=== PATIENT | male | born 1965 | race African-American/Black ===

== ENCOUNTER 2019-11-30 16:03 | Emergency (ER) | payer OTHER ==
--- NOTE | 2019-11-30 16:26 | PDOC ---
Rapid Medical Evaluation Time Seen by Provider: 11/30/19 16:24 Medical Evaluation: Allergies Allergy/AdvReac Type Severity Reaction Status Date / Time No Known Allergies Allergy Verified 09/30/17 14:14 11/30/19 16:25 CC: 2 weeks with productive cough PE: Lungs CTAB Orders: CXR Patient will proceed to the ED for further evaluation. Discharge Disposition - Diagnosis Cough - Referrals - Patient Instructions - Post Discharge Activity
[2019-11-30 16:29] VITALS: BP 126/63; PULSE 91; TEMP 98.2; BMI 27.7
--- NOTE | 2019-11-30 17:28 | PDOC ---
History of Present Illness - General Chief Complaint: Cold Symptoms Stated Complaint: BREATHING DISCOMFORT/COUGHING Time Seen by Provider: 11/30/19 16:24 History Source: Patient - History of Present Illness Timing/Duration: reports: other Associated Symptoms: denies: cough, fever/chills Past History - Past Medical History Allergies/Adverse Reactions: Allergies Allergy/AdvReac Type Severity Reaction Status Date / Time No Known Allergies Allergy Verified 09/30/17 14:14 Home Medications: Ambulatory Orders NK [No Known Home Medication] 09/30/17 - Psycho Social/Smoking Cessation Hx Smoking History: Never smoked Have you smoked in the past 12 months: No Hx Alcohol Use: No Drug/Substance Use Hx: No Review of Systems - Review of Systems Constitutional: No: Chills, Fever Respiratory: Yes: Shortness of Breath. No: Cough Cardiac (ROS): No: Chest Pain, Lightheadedness, Palpitations, Syncope *Physical Exam - Vital Signs Last Vital Signs Temp Pulse Resp BP Pulse Ox 98.2 F 91 H 20 126/63 97 11/30/19 16:25 11/30/19 16:25 11/30/19 16:25 11/30/19 16:25 11/30/19 16:25 - Physical Exam General Appearance: Yes: Appropriately Dressed. No: Apparent Distress HEENT: positive: Normal ENT Inspection, Normal Voice, TMs Normal, Pharynx Normal. negative: Scleral Icterus (R), Scleral Icterus (L) Neck: positive: Supple Respiratory/Chest: positive: Lungs Clear, Normal Breath Sounds. negative: Respiratory Distress Cardiovascular: positive: Regular Rate, S1, S2 Integumentary: positive: Dry, Warm Neurologic: positive: Fully Oriented, Alert, Normal Mood/Affect Medical Decision Making - Medical Decision Making 11/30/19 17:24 54-year-old male, denies any past medical history here with "rumbling in my chest", at nights. Patient states he had a viral illness a month ago that resolved but states chest discomfort never went away. Also complaining of possible shortness of breath. No cough, chest pain, fever or chills. Denies any cardiac disease and no cardiac testing in the past. Well-appearing and stable with clear chest lungs. Chest x-ray as negative by radiology and EKG unremarkable. Will DC to follow-up with PMD if symptoms persist Discharge - Discharge Information Problems reviewed: Yes Clinical Impression/Diagnosis: SOB (shortness of breath) Condition: Good Disposition: HOME - Follow up/Referral Referrals: Mcihael Forbes MD [Primary Care Provider] - - Patient Discharge Instructions Additional Instructions: The causes of your symptoms are unclear at this time as your exam chest x-ray and EKG were all normal. If symptoms persist, please follow-up with your PMD - Post Discharge Activity
--- NOTE | 2019-12-01 12:40 | EKG ---
Test Reason : Blood Pressure : / mmHG Vent. Rate : 076 BPM Atrial Rate : 076 BPM P-R Int : 188 ms QRS Dur : 106 ms QT Int : 386 ms P-R-T Axes : 055 -32 041 degrees QTc Int : 434 ms NORMAL SINUS RHYTHM LEFT AXIS DEVIATION ABNORMAL ECG NO PREVIOUS ECGS AVAILABLE Confirmed by RODO MORIN MD ([id number]) on 12/01/2019 12:39:54 PM Referred By: Confirmed By:RODO MORIN MD
== END 2019-11-30 18:22 | disposition home or self-care (01) ==
LOC: JERFT 16:03
DX: R06.02 Shortness of breath (principal)
CPT/HCPCS: 71046-TC-FY; 93005; 93010; 99282-25